=== PATIENT | male | born 1950 | race Caucasian/White ===

== ENCOUNTER 2018-09-19 17:34 | Emergency (ER) | payer MEDICARE ==
[2018-09-19 18:28] LABS: ABS Basophils 0.1 10^3/ul (0-0.2); ABS Eosinophils 0.4 10^3/ul (0-0.6); ABS Lymphocytes 2.2 10^3/ul (1.0-4.8); ABS Monocytes 0.6 10^3/ul (0-0.8); ABS Neutrophils 4.3 10^3/ul (1.5-7.7); ABS Nucleated RBC 0 10^3/ul; Eosinophil % 5.9 %; Hematocrit 40 % (36-46); Hemoglobin 13.7 g/dL (14.0-18.0); Lymphocyte % 28.8 %; Mean Corpuscular HGB Conc 34 g/dL (31-36); Mean Corpuscular Hemoglobin 30 pg (27-31); Mean Corpuscular Volume 88 fL (80-94); Mean Platelet Volume 7.8 fL (7.4-10.4); Nucleated Red Blood Cells % 0.1; Platelet Count 324 10^3/uL (150-450); Red Blood Count 4.53 10^6 /uL (4.18-5.48); Red Cell Distribution Width 14 % (10.5-15); White Blood Count 7.6 10^3/uL (3.5-10.8)
[2018-09-19 18:35] LABS: INR 1.06 (0.77-1.02)
[2018-09-19 18:44] LABS: ALT 34 U/L (7-52); Albumin 4.3 g/dL (3.2-5.2); Albumin/Globulin Ratio 1.5 (1-3); Alkaline Phosphatase 86 U/L (34-104); BUN/Creatinine Ratio 18.8 (8-20); Blood Urea Nitrogen 18 mg/dL (6-24); CO2 Carbon Dioxide 27 mmol/L (22-32); Calcium 9.6 mg/dL (8.6-10.3); Chloride 104 mmol/L (101-111); EGFR African American 94.3 (>60); EGFR Non-African American 77.9 (>60); Globulin 2.9 g/dL (2-4); Glucose 111 mg/dL (70-100); Magnesium 2.4 mg/dL (1.9-2.7); Sodium 139 mmol/L (135-145); Total Protein 7.2 g/dL (6.4-8.9)
[2018-09-19 19:22] LABS: Anion Gap 8 mmol/L (2-11); TSH (Thyroid Stimulating Horm) 2.61 mcIU/mL (0.34-5.60)
--- NOTE | 2018-09-19 21:10 | ED ---
HPI Cardiac - HPI Summary HPI Summary: Patient is a 68 y/o M presenting to ED with complaints of palpitations and diaphoresis. He states that this afternoon at around 1700 he experienced a higher pulse rate of 90s and arrhythmia. At present, no palpitations, chest pain , SOB, dizziness is reported but he does note that he feels "hot". Patient states that he has an sunny on his watch which recorded the event. PMHx of afib, cardioversion was done in June of 2017. Patient also reports that in the fall of last year, he began to experience palpitations, was given Holter monitor which recorded multiple events of palpitations. Patient claims that palpitations eventually spontaneously stopped. He states that present Sx are similar to those that he experienced during his episodes of afib. Patient is not on blood thinner at present. Hooker Machine Tender is Dr. Morales, patient is not given blood thinner, has had stress test done. Patient states that he is on medical cannabis. On triage, pain is denied. Nothing is noted to aggravate/ alleviate Sx. Home medications and allergies are reviewed. In room, pulse is 74 , o2 97, BP 157/81. - History of Current Complaint Chief Complaint: EDDysrhythmPalp Stated Complaint: HEART RATE HIGH AND IRREGULAR PER PT Hx Obtained From: Patient Onset/Duration: Started Hours Ago - onset 1700 today, Resolved Timing: Intermittent Current Severity: None - pain is denied Pain Intensity: 0 Pain Scale Used: 0-10 Numeric - 0/10 Character: Fast Aggravating Factor(s): Nothing Alleviating Factor(s): Nothing Associated Signs and Symptoms: Positive: Diaphoresis, Palpitations - since resolved. Negative: Chest Pain, Dizziness, Shortness of Breath - Allergy/Home Medications Allergies/Adverse Reactions: Allergies Allergy/AdvReac Type Severity Reaction Status Date / Time Penicillins Allergy Hives Verified 09/19/18 17:42 PMH/Surg Hx/FS Hx/Imm Hx Endocrine/Hematology History: Denies: Hx Diabetes Cardiovascular History: Reports: Hx Atrial Fibrillation Denies: Hx Hypertension - Surgical History Surgery Procedure, Year, and Place: rhinoplasty, tonsillectomy - Immunization History Date of Tetanus Vaccine: utd Date of Influenza Vaccine: utd Infectious Disease History: No Infectious Disease History: Denies: Traveled Outside the [place] in Last 30 Days - Family History Known Family History: Positive: Unknown - Pt was adopted. - Social History Alcohol Use: Rare Substance Use Type: Reports: Marijuana Substance Use Comment - Amount & Last Used: occassionally Smoking Status (MU): Former Smoker Review of Systems Positive: Skin Diaphoresis Positive: Palpitations - since resolved. Negative: Chest Pain Negative: Shortness Of Breath Neurological: Other - NEGATIVE - DIZZINESS All Other Systems Reviewed And Are Negative: Yes Physical Exam - Summary Physical Exam Summary: VITAL SIGNS: Reviewed. GENERAL: Patient is a well-developed and nourished male who is lying comfortable in the stretcher. Patient is not in any acute respiratory distress. HEAD AND FACE: No signs of trauma. No ecchymosis, hematomas or skull depressions. No sinus tenderness. EYES: PERRLA, EOMI x 2, No injected conjunctiva, no nystagmus. EARS: Hearing grossly intact. Ear canals and tympanic membranes are within normal limits. MOUTH: Oropharynx within normal limits. NECK: Supple, trachea is midline, no adenopathy, no JVD, no carotid bruit, no c- spine tenderness, neck with full ROM. CHEST: Symmetric, no tenderness at palpation LUNGS: Clear to auscultation bilaterally. No wheezing or crackles. CVS: Regular rate and rhythm, S1 and S2 present, no murmurs or gallops appreciated. ABDOMEN: Soft, non-tender. No signs of distention. No rebound no guarding, and no masses palpated. Bowel sounds are normal. EXTREMITIES: FROM in all major joints, no edema, no cyanosis or clubbing. NEURO: Alert and oriented x 3. No acute neurological deficits. Speech is normal and follows commands. SKIN: Dry and warm Triage Information Reviewed: Yes Vital Signs On Initial Exam: Initial Vitals Temp Pulse Resp BP Pulse Ox 99.3 F 90 18 166/90 96 09/19/18 17:35 09/19/18 17:35 09/19/18 17:35 09/19/18 17:35 09/19/18 17:35 Vital Signs Reviewed: Yes Diagnostics - Vital Signs Vital Signs Temp Pulse Resp BP Pulse Ox 09/19/18 17:35 99.3 F 90 18 166/90 96 - Laboratory Lab Results: Lab Results 09/19/18 09/19/18 09/19/18 Range/Units 18:19 18:19 18:19 WBC 7.6 (3.5-10.8) 10^3/uL RBC 4.53 (4.18-5.48) 10^6 /uL Hgb 13.7 L (14.0-18.0) g/dL Hct 40 (36-46) % MCV 88 (80-94) fL MCH 30 (27-31) pg MCHC 34 (31-36) g/dL RDW 14 (10.5-15) % Plt Count 324 (150-450) 10^3/uL MPV 7.8 (7.4-10.4) fL Neut % (Auto) 55.9 % Lymph % (Auto) 28.8 % Emmons % (Auto) 8.5 % Eos % (Auto) 5.9 % Baso % (Auto) 0.9 % Absolute Neuts (auto) 4.3 (1.5-7.7) 10^3/ul Absolute Lymphs (auto) 2.2 (1.0-4.8) 10^3/ul Absolute Monos (auto) 0.6 (0-0.8) 10^3/ul Absolute Eos (auto) 0.4 (0-0.6) 10^3/ul Absolute Basos (auto) 0.1 (0-0.2) 10^3/ul Absolute Nucleated RBC 0 10^3/ul Nucleated RBC % 0.1 INR (Anticoag Therapy) 1.06 H (0.77-1.02) Sodium 139 (135-145) mmol/L Potassium TNP Chloride 104 (101-111) mmol/L Carbon Dioxide 27 (22-32) mmol/L Anion Gap 8 (2-11) mmol/L BUN 18 (6-24) mg/dL Creatinine 0.96 (0.67-1.17) mg/dL Est GFR ( Amer) 94.3 (>60) Est GFR (Non-Af Amer) 77.9 (>60) BUN/Creatinine Ratio 18.8 (8-20) Glucose 111 H (70-100) mg/dL Lactic Acid (0.5-2.0) mmol/L Calcium 9.6 (8.6-10.3) mg/dL Magnesium 2.4 (1.9-2.7) mg/dL Total Bilirubin 0.20 (0.2-1.0) mg/dL AST TNP ALT 34 (7-52) U/L Alkaline Phosphatase 86 (34-104) U/L Troponin I 0.00 (<0.04) ng/mL B-Natriuretic Peptide (<=100) pg/mL Total Protein 7.2 (6.4-8.9) g/dL Albumin 4.3 (3.2-5.2) g/dL Globulin 2.9 (2-4) g/dL Albumin/Globulin Ratio 1.5 (1-3) TSH 2.61 (0.34-5.60) mcIU/mL 09/19/18 09/19/18 09/19/18 Range/Units 18:19 18:19 19:28 WBC (3.5-10.8) 10^3/uL RBC (4.18-5.48) 10^6 /uL Hgb (14.0-18.0) g/dL Hct (36-46) % MCV (80-94) fL MCH (27-31) pg MCHC (31-36) g/dL RDW (10.5-15) % Plt Count (150-450) 10^3/uL MPV (7.4-10.4) fL Neut % (Auto) % Lymph % (Auto) % Emmons % (Auto) % Eos % (Auto) % Baso % (Auto) % Absolute Neuts (auto) (1.5-7.7) 10^3/ul Absolute Lymphs (auto) (1.0-4.8) 10^3/ul Absolute Monos (auto) (0-0.8) 10^3/ul Absolute Eos (auto) (0-0.6) 10^3/ul Absolute Basos (auto) (0-0.2) 10^3/ul Absolute Nucleated RBC 10^3/ul Nucleated RBC % INR (Anticoag Therapy) (0.77-1.02) Sodium (135-145) mmol/L Potassium TNP Chloride (101-111) mmol/L Carbon Dioxide (22-32) mmol/L Anion Gap (2-11) mmol/L BUN (6-24) mg/dL Creatinine (0.67-1.17) mg/dL Est GFR ( Amer) (>60) Est GFR (Non-Af Amer) (>60) BUN/Creatinine Ratio (8-20) Glucose (70-100) mg/dL Lactic Acid 1.4 (0.5-2.0) mmol/L Calcium (8.6-10.3) mg/dL Magnesium (1.9-2.7) mg/dL Total Bilirubin (0.2-1.0) mg/dL AST TNP ALT (7-52) U/L Alkaline Phosphatase (34-104) U/L Troponin I (<0.04) ng/mL B-Natriuretic Peptide 61 (<=100) pg/mL Total Protein (6.4-8.9) g/dL Albumin (3.2-5.2) g/dL Globulin (2-4) g/dL Albumin/Globulin Ratio (1-3) TSH (0.34-5.60) mcIU/mL Result Diagrams: 09/19/18 18:19 09/19/18 19:28 Lab Statement: Any lab studies that have been ordered have been reviewed, and results considered in the medical decision making process. - EKG 1752 Cardiac Rate: NL - rate of 94 BPM EKG Rhythm: Sinus Rhythm Summary of EKG Findings: EKG showed sinus rhythm with rate of 94 BPM, RBBB. Disposition - Course Course Of Treatment: Patient is a 68 y/o M presenting to ED with complaints of palpitations and diaphoresis. He states that this afternoon at around 1700 he experienced a higher pulse rate of 90s and arrhythmia. At present, no palpitations, chest pain, SOB, dizziness is reported but he does note that he feels "hot". Patient states that he has an sunny on his watch which recorded the event. PMHx of afib, cardioversion was done in June of 2017. Patient also reports that in the fall of last year, he began to experience palpitations, was given Holter monitor which recorded multiple events of palpitations. Patient claims that palpitations eventually spontaneously stopped. He states that present Sx are similar to those that he experienced during his episodes of afib. Patient is not on blood thinner at present. Hooker Machine Tender is Dr. Morales , patient is not given blood thinner, has had stress test done. Patient states that he is on medical cannabis. Physical exam is unremarkable. EKG showed sinus rhythm with rate of 94 BPM, RBBB. Labs showed Hgb 13.7, INR 1.06, glucose 111, lactic acid 1.4, trop 0, BNP 61, TSH 2.61. Results of labs and tests were discussed with patient, he will be discharged to home and follow up with PCP and principal biostatistician. - Diagnoses Provider Diagnoses: Palpitations Discharge - Sign-Out/Discharge Documenting (check all that apply): Patient Departure - discharge Patient Received Moderate/Deep Sedation with Procedure: No - Discharge Plan Condition: Stable Disposition: HOME Patient Education Materials: Heart Palpitations (ED) Referrals: Mitzy Morales MD [Medical Doctor] - 3 Days Care [facility] [Outside] - 3 Days Additional Instructions: PLEASE RETURN TO THE EMERGENCY DEPARTMENT IMMEDIATELY FOR WORSENING OR CONCERNING SYMPTOMS. FOLLOW UP WITH YOUR PRIMARY CARE PHYSICIAN AND NETWORK COMMUNICATIONS ENGINEER WITHIN THREE DAYS. - Attestation Statements Document Initiated by Scribe: Yes Documenting Scribe: BRI PANIAGUA Provider For Whom Valeriy is Documenting (Include Credential): AC DAS MD Scribe Attestation: IBRI, scribed for AC DAS MD on 09/19/18 at 2200. Status of Scribe Document: Ready
[2018-09-19 21:37] VITALS: BP 157/81
== END 2018-09-19 21:43 | disposition home or self-care (01) ==
LOC: ED 17:34
DX: R00.2 Palpitations (principal); Z88.0 Allergy status to penicillin; Z87.891 Personal history of nicotine dependence; R61 Generalized hyperhidrosis
CPT/HCPCS: 36415; 80053; 83605; 83735; 83880; 84443; 84484; 85025; 85610; 93005; 99282

== ENCOUNTER 2018-12-12 21:52 | Emergency (ER) | payer MEDICARE ==
--- NOTE | 2018-12-12 22:23 | ED ---
Palpitations / Dysrhythmia - HPI Summary HPI Summary: This pt is a 68 Y/O M presenting to [facility] with a CC of dysrhythmia since 12/09/18 after being recommended by Dr. Morales due to the length of the episode. He has no SOB, cough, CP, lightheadedness, headaches, N/V/D during these episodes. He states that he has had a full stress test and cardiac workups in the past but his heart was in a healthy condition. He states that he does not have any dysrhythmia with exercising or exertion. The pt states that he gets worried when his heart acts up due to the inability to diagnose the pt. He has a Hx of IBS and stated that his heart acts up during an episode of IBS and is usually the most severe at night. He states that after his stomach is calmed down then his episode ends. - History of Current Complaint Chief Complaint: EDDysrhythmPalp Time Seen by Provider: 12/12/18 22:14 Hx Obtained From: Patient Onset/Duration: Sudden Onset, Resolved Timing: Intermittent Episodes Lasting: - the length of his IBS symptoms Severity Initially: Mild Severity Currently: None Character: Irregular Aggravating: Nothing Alleviating: Nothing Associated Signs & Symptoms: Negative - Allergy/Home Medications Allergies/Adverse Reactions: Allergies Allergy/AdvReac Type Severity Reaction Status Date / Time Penicillins Allergy Hives Verified 12/12/18 22:00 Home Medications: Home Medications Aspirin 81 mg CHEW TAB* [Aspirin Low Dose TAB*] 81 mg PO DAILY 12/12/18 [ History Confirmed 12/12/18] Atenolol TAB* [Tenormin TAB* 50 MG] 25 mg PO DAILY 12/12/18 [History Confirmed 12/12/18] Dicyclomine CAP* [Bentyl CAP*] 10 mg PO AC PRN 12/12/18 [History Confirmed 12/12] Non Formulary Med2* 1 PO .1 PRN 12/12/18 [History] Non Formulary Med3* 5 mg PO PRN 12/12/18 [History] PMH/Surg Hx/FS Hx/Imm Hx Previously Healthy: Yes Endocrine/Hematology History: Denies: Hx Diabetes Cardiovascular History: Reports: Hx Atrial Fibrillation Denies: Hx Hypertension - Surgical History Surgery Procedure, Year, and Place: rhinoplasty, tonsillectomy - Immunization History Date of Tetanus Vaccine: utd Date of Influenza Vaccine: utd Infectious Disease History: No Infectious Disease History: Denies: Traveled Outside the [place] in Last 30 Days - Family History Known Family History: Positive: Unknown - Pt was adopted. - Social History Occupation: Retired Lives: With Family Alcohol Use: Rare Hx Substance Use: Yes Substance Use Type: Reports: Marijuana Substance Use Comment - Amount & Last Used: occassionally Hx Tobacco Use: Yes Smoking Status (MU): Former Smoker Review of Systems Negative: Fever, Other - lightheadedness Positive: Other - dysrhythmia . Negative: Chest Pain Negative: Shortness Of Breath, Cough Negative: Vomiting, Diarrhea, Nausea Negative: Headache All Other Systems Reviewed And Are Negative: Yes Physical Exam - Summary Physical Exam Summary: Appearance: Well-appearing, Well-nourished, lying in bed comfortable Skin: Warm, dry, no obvious rash Eyes: sclera anicteric, no conjunctival pallor ENT: mucous membranes moist Neck: deferred Respiratory: No signs of respiratory distress Cardiovascular: Appears well perfused, pulses are nml Abdomen: deferred Musculoskeletal: Moving all 4 extremities without obvious discomfort Neurological: Awake and alert, mentation is normal, speech is fluent and appropriate Psychiatric: affect is normal, does not appear anxious or depressed Triage Information Reviewed: Yes Vital Signs On Initial Exam: Initial Vitals Temp Pulse Resp BP Pulse Ox 99.2 F 81 16 151/82 97 12/12/18 21:54 12/12/18 21:54 12/12/18 21:54 12/12/18 21:54 12/12/18 21:54 Vital Signs Reviewed: Yes Diagnostics - Vital Signs Vital Signs Temp Pulse Resp BP Pulse Ox 12/12/18 21:54 99.2 F 81 16 151/82 97 - Laboratory Lab Statement: Any lab studies that have been ordered have been reviewed, and results considered in the medical decision making process. - EKG 2156 Cardiac Rate: NL - 83 BPM Summary of EKG Findings: NSR at 83 BPM, with a RBBB. Course/Dx - Course Assessment/Plan: This pt is a 68 Y/O M presenting to [facility] with a CC of palpitations after being recommended by Dr. Morales due to the length of the episode. He has no SOB, cough, CP, lightheadedness, headaches, N/V/D during these episodes. The pt stated that his episodes of dysrhythmia occurs due to his IBS. He states that Atenolol 25 mgs usually clears up his conditions. His PE shows that he has. His EKG shows that he has a RBBB but is otherwise normal. He received a GI cocktail to help his IBS symptoms. He will be discharged home with a Dx of palpitations after being given a GI cocktail. - Diagnoses Provider Diagnoses: Palpitations Discharge - Sign-Out/Discharge Documenting (check all that apply): Patient Departure - discharge Patient Received Moderate/Deep Sedation with Procedure: No - Discharge Plan Condition: Good Disposition: HOME Patient Education Materials: Heart Palpitations (ED) Referrals: Mitzy Morales MD [Medical Doctor] - If Needed Additional Instructions: Your EKG showed a normal sinus rhythm with occasional PVCs, not a cause for concern. - Billing Disposition and Condition Condition: GOOD Disposition: Home - Attestation Statements Document Initiated by Valeriy: Yes Documenting Scribe: Kurt Lindsay Provider For Whom Valeriy is Documenting (Include Credential): Issa Cordoba MD Scribe Attestation: Kurt Castanon, scribed for Issa Cordoba MD on 12/13/18 at 0147. Scribe Documentation Reviewed: Yes Provider Attestation: The documentation as recorded by the Kurt maciel accurately reflects the service I personally performed and the decisions made by me, Issa Cordoba MD Status of Scribe Document: Viewed
[2018-12-12] MEDS ORDERED: Lidocaine 2% VISCOUS* 15 ML UDC PO ONE (22:30)
[2018-12-12] MEDS ORDERED: Al Hydrox/Mg Hydrox/Simet LIQ* 30 ML UDC PO ONE (22:30)
[2018-12-12 23:18] VITALS: BP 135/74
== END 2018-12-12 23:17 | disposition home or self-care (01) ==
LOC: ED 21:52
DX: R00.2 Palpitations (principal); I45.10 Unspecified right bundle-branch block; I48.91 Unspecified atrial fibrillation; Z88.0 Allergy status to penicillin; Z79.82 Long term (current) use of aspirin; Z79.899 Other long term (current) drug therapy; Z87.891 Personal history of nicotine dependence
CPT/HCPCS: 93005; 99282; A9270-GY